=== PATIENT | male | born 1940 | race Caucasian/White ===

== ENCOUNTER → 2023-07-31 06:40 | Outpatient (REF) | payer MEDICARE, SELFPAY | LOC: RCS 06:40 | PROVIDERS: ATTENDING PHYSICIAN Nurse Practitioner; FAMILY PHYSICIAN Family Medicine | DX: I49.3 Ventricular premature depolarization (principal); I47.29 Other ventricular tachycardia; I11.0 Hypertensive heart disease with heart failure | CPT/HCPCS: 78452; 93017; A9500 ==

== ENCOUNTER → 2023-09-20 12:30 | Outpatient (REF) | payer MEDICARE, SELFPAY | LOC: PAVMRI 12:30 | PROVIDERS: ATTENDING PHYSICIAN Family Medicine | DX: M54.2 Cervicalgia (principal) | CPT/HCPCS: 72156; A9575 ==

== ENCOUNTER → 2023-09-28 06:44 | Outpatient (REF) | payer MEDICARE, SELFPAY | LOC: MRI 06:44 | PROVIDERS: ATTENDING PHYSICIAN Family Medicine | DX: M79.2 Neuralgia and neuritis, unspecified (principal); M54.16 Radiculopathy, lumbar region | CPT/HCPCS: 72148 ==

== ENCOUNTER → 2023-10-03 07:22 | Outpatient (REF) | payer MEDICARE, SELFPAY | LOC: MRI 3T 07:22 | PROVIDERS: ATTENDING PHYSICIAN Family Medicine | DX: R26.89 Other abnormalities of gait and mobility (principal); R42 Dizziness and giddiness | CPT/HCPCS: 70546; 70553; A9585 ==

== ENCOUNTER → 2023-10-17 13:39 | Outpatient (REF) | payer MEDICARE, SELFPAY | LOC: RAD 13:39 | PROVIDERS: ATTENDING PHYSICIAN Family Medicine | DX: N28.89 Other specified disorders of kidney and ureter (principal) | CPT/HCPCS: 74177; Q9967 ==

== ENCOUNTER 2024-10-03 09:09 | Outpatient (RCR) | payer MEDICARE, SELFPAY | END 2024-10-03 23:59 | disposition home or self-care (01) | LOC: ROT 09:09 | PROVIDERS: ATTENDING PHYSICIAN Family Medicine | DX: M77.12 Lateral epicondylitis, left elbow (principal); Z73.6 Limitation of activities due to disability | CPT/HCPCS: 97010; 97110; 97140; 97166; 97535; 97760 ==

== ENCOUNTER 2024-10-24 09:58 | Outpatient (RCR) | payer MEDICARE, SELFPAY | END 2024-10-24 23:59 | disposition home or self-care (01) | LOC: ROT 09:58 | PROVIDERS: ATTENDING PHYSICIAN Family Medicine | DX: M77.12 Lateral epicondylitis, left elbow (principal); Z73.6 Limitation of activities due to disability | CPT/HCPCS: 97010; 97110; 97140; 97535 ==

== ENCOUNTER → 2025-01-15 10:20 | Outpatient (REF) | payer MEDICARE, SELFPAY | LOC: RCS 10:20 | PROVIDERS: ATTENDING PHYSICIAN Nurse Practitioner; FAMILY PHYSICIAN Family Medicine | DX: R06.09 Other forms of dyspnea (principal); I44.1 Atrioventricular block, second degree; I44.0 Atrioventricular block, first degree | CPT/HCPCS: 93225; 93226 ==

== ENCOUNTER → 2025-02-03 07:51 | Outpatient (REF) | payer MEDICARE, SELFPAY | LOC: HWRCS 07:51 | PROVIDERS: ATTENDING PHYSICIAN Nurse Practitioner; FAMILY PHYSICIAN Family Medicine | DX: R06.09 Other forms of dyspnea (principal) | CPT/HCPCS: 78452; 93017; A9500 ==

== ENCOUNTER → 2025-02-04 09:07 | Outpatient (REF) | payer MEDICARE, SELFPAY ==
[2025-02-04 10:27] LABS: Hematocrit 45.2 % (39.0-52.0); Hemoglobin 15.2 g/dL (13.0-18.0); Mean Corp Hgb Conc. 33.6 g/dL (33.0-37.0); Mean Corpuscular Volume 90.8 fL (80.0-94.0); Nucleated Red Blood Cells % 0 % (-); Platelet Count 218 10^3/uL (130-400); Red Cell Dist. Width 13.3 % (11.5-14.5)
[2025-02-04 11:27] LABS: ALT (SGPT) 24 U/L (0-50); AST (SGOT) 25 U/L (17-59); Albumin 4.6 g/dl (3.5-5.0); Alkaline Phosphatase 59 U/L (38-126); Blood Urea Nitrogen 23 mg/dl (9-20); Calcium 9.9 mg/dl (8.4-10.2); Carbon Dioxide 26 mmol/L (22-30); Chloride 104 mmol/L (98-107); Glucose 89 mg/dl (70-99); Potassium 4.9 mmol/L (3.5-5.1); Sodium 138 mmol/L (135-145); Total Protein 7.3 g/dl (6.3-8.2); eGFR > 60.00
== END ==
LOC: REG 09:07
PROVIDERS: ATTENDING PHYSICIAN Internal Medicine Cardiovascular Disease; OTHER PHYSICIAN Family Medicine
DX: I25.119 Atherosclerotic heart disease of native coronary artery with unspecified angina pectoris (principal); R94.39 Abnormal result of other cardiovascular function study
CPT/HCPCS: 36415; 80053; 84100; 85025